=== PATIENT | female | born 2000 | race Caucasian/White ===

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

== ENCOUNTER 2019-07-13 21:44 | Emergency (ER) | payer BC ==
[2019-07-13 21:59] VITALS: BP 144/63
[2019-07-13] MEDS ORDERED: Sulfamethox/Trimethoprim DS 800/160* TAB PO ONE ×2 (22:07→22:13)
--- NOTE | 2019-07-13 22:12 | UC ---
Abdominal Pain Female HPI - HPI Summary HPI Summary: 18 year old female with no PMH presents with urinary frequency, urgency, burning with urination x 3-4 days. Has been taking Azo for symptoms without much benefit. no fever, chills, no flank pain. no other symptoms. - History of Current Complaint Chief Complaint: UCGU Stated Complaint: URINARY Time Seen by Provider: 07/13/19 21:52 Hx Obtained From: Patient, Family/Numerical Control Router Operator - BF Hx Last Menstrual Period: 07/07/19 on BCP ?: No Onset/Duration: Sudden Onset, Lasting Days - 4 Severity Currently: None Pain Intensity: 0 Pain Scale Used: 0-10 Numeric Location: Suprapubic Radiates: No Character: Burning Associated Signs and Symptoms: Positive: Urinary Symptoms. Negative: Nausea, Vomiting, Diarrhea Allergies/Adverse Reactions: Allergies Allergy/AdvReac Type Severity Reaction Status Date / Time amoxicillin Allergy Hives Verified 07/13/19 21:59 ciprofloxacin Allergy Palpitation Verified 07/13/19 21:59 s Home Medications: Home Medications Escitalopram * [Lexapro 10 mg (NF)] 20 mg PO BEDTIME 07/13/19 [History Confirmed 07/13/19] PMH/Surg Hx/FS Hx/Imm Hx Previously Healthy: Yes - Surgical History Surgical History: Yes Surgery Procedure, Year, and Place: age 15 breast reduction; left arm cyst age 4 yrs - Family History Known Family History: Positive: Respiratory Disease, Non-Contributory - Social History Alcohol Use: Rare Substance Use Type: Marijuana Substance Use Comment - Amount & Last Used: varies Smoking Status (MU): Smoker, Current Status Unknown Type: Cigarettes Have You Smoked in the Last Year: Yes - occ. "vaps" - Immunization History Most Recent Influenza Vaccination: LAST YEAR Most Recent Pneumonia Vaccination: N/A Vaccination Up to Date: Yes Review of Systems All Other Systems Reviewed And Are Negative: Yes Constitutional: Negative: Fever, Chills, Fatigue Genitourinary: Positive: Dysuria, Urgency. Negative: Hematuria, Frequency, Vaginal/Penile Burning, Vaginal/Penile Itching, Vaginal/Penile Discharge, Vaginal/Penile Pain, Ulceration/Lesion Motor: Positive: Negative Neurological: Positive: Negative Is Patient Immunocompromised?: No Physical Exam Triage Information Reviewed: Yes Appearance: Well-Appearing, No Pain Distress, Well-Nourished Vital Signs: Initial Vital Signs Temp 98.4 F 07/13/19 21:54 Pulse 89 07/13/19 21:54 Resp 16 07/13/19 21:54 BP 144/63 07/13/19 21:54 Pulse Ox 98 07/13/19 21:54 Vital Signs Reviewed: Yes Eyes: Positive: Conjunctiva Clear Abdomen Description: Positive: No Organomegaly, Soft, Bruit, Other: - + mild TTP over suprapubic region, minimal RLQ, LLQ.. Negative: CVA Tenderness (R), CVA Tenderness (L), Distended, Guarding, Hepatomegaly, Splenomegaly Musculoskeletal Exam: Normal Neurological Exam: Normal Psychological Exam: Normal Psychological: Positive: Normal Response To Family Skin Exam: Normal Abd Pain Female Course/Dx - Course Course Of Treatment: UTI - Increase fluid intake, water, to help flush out system - Antibiotics as prescribed - GO to ER with back pain, fever > 102, decreased urine output - Motrin, tylenol, AZO as needed for symptoms. - Differential Dx/Diagnosis Differential Diagnosis: Urinary Tract Infection Provider Diagnosis: UTI (urinary tract infection) Discharge ED - Sign-Out/Discharge Documenting (check all that apply): Patient Departure All imaging exams completed and their final reports reviewed: No Studies - Discharge Plan Condition: Good Disposition: HOME Prescriptions: Sulfamethox/Trimethoprim DS* [Bactrim DS 800/160 TAB*] 1 tab PO BID #9 tab Patient Education Materials: Urinary Tract Infection in Women (DC) Referrals: No Primary Care Phys,NOPCP [Primary Care Provider] - [facility] [Outside] Additional Instructions: - Increase fluid intake, water, to help flush out system - Antibiotics as prescribed - GO to ER with back pain, fever > 102, decreased urine output - Motrin, tylenol, AZO as needed for symptoms. - Billing Disposition and Condition Condition: GOOD Disposition: Home - Attestation Statements Provider Attestation: This patient was not seen by me I was available for consult Chart reviewed JEFRY
--- NOTE | 2019-07-16 08:17 | UC ---
- Progress Note Progress Note: Urine culture positive for enterobacter - on antibiotics. awaiting sensitivities. No change in management Course/Dx - Diagnoses Provider Diagnoses: UTI (urinary tract infection) Discharge ED - Sign-Out/Discharge Documenting (check all that apply): Post-Discharge Follow Up All imaging exams completed and their final reports reviewed: No Studies - Discharge Plan Condition: Good Disposition: HOME Prescriptions: Sulfamethox/Trimethoprim DS* [Bactrim DS 800/160 TAB*] 1 tab PO BID #9 tab Patient Education Materials: Urinary Tract Infection in Women (DC) Referrals: [facility] [Outside] No Primary Care Phys,NOPCP [Primary Care Provider] - Additional Instructions: - Increase fluid intake, water, to help flush out system - Antibiotics as prescribed - GO to ER with back pain, fever > 102, decreased urine output - Motrin, tylenol, AZO as needed for symptoms. - Billing Disposition and Condition Condition: GOOD Disposition: Home
== END 2019-07-13 22:20 | disposition home or self-care (01) ==
LOC: UCCORT 21:44
DX: N39.0 Urinary tract infection, site not specified (principal); F17.210 Nicotine dependence, cigarettes, uncomplicated; Z88.0 Allergy status to penicillin; Z88.1 Allergy status to other antibiotic agents
CPT/HCPCS: 87077; 87086; 87186; 99212; A9270-GY; G0463